=== PATIENT | male | born 1970 | race American Indian/Alaskan Native ===

== ENCOUNTER 2019-08-11 21:04 | Emergency (ER) | payer MEDICARE ==
[2019-08-11] MEDS ORDERED: CYCLOBENZAPRINE 10 MG TAB PO ONE (23:48)
[2019-08-11] MEDS ORDERED: dexAMETHasone 20 MG/5 ML VIAL IM ONE (23:48)
[2019-08-11] MEDS ORDERED: KETOROLAC 30 MG/1 ML INJ IM ONE (23:48)
--- NOTE | 2019-08-12 00:34 | XRay Report ---
EXAMINATION: Lumbar spine radiograph series, 2 views, 08/12/2019 CLINICAL INFORMATION: Back pain. No history of trauma is given COMPARISON: None. FINDINGS: There is normal alignment of the lumbar vertebral bodies. Vertebral body height and interve rtebral disc spaces are well maintained. No significant bony degenerative changes are noted. IMPRESSION: No evidence of acute bony abnormality of the lumbar spine. Signer Name: Magaly Rodriguez MD Signed: 08/12/2019 12:29 AM Workstation Name: [id number]
--- NOTE | 2019-08-12 01:38 | Emergency Department Report ---
ED Back Pain/Injury HPI - General Chief Complaint: Back Pain/Injury Stated Complaint: RIGHT SIDE AND RIGHT BACK PAIN Source: patient Limitations: No Limitations - History of Present Illness Initial Comments: Patient is a 48-year-old -[place] male with no past medical history presents to the ED with complaint of acute onset persistent severe nontraumatic low back pain that radiates to the right hip and right flank for the last 1 month, worse in the last 2 days. Patient denies fall, traumatic injury, hematuria, dysuria, testicular pain, abdominal pain, nausea, vomiting, chest pain, shortness of breath, fever, chills, headache, numbness and tingling or weakness of lower extremities bilaterally. MD Complaint: back pain, other (Right-sided back pain) -: Sudden, month(s) (1) Similar Symptoms Previously: Yes Place: home Radiation: groin, right leg (hip), flank (right) Severity: severe Severity scale (0 -10): 7 Quality: sharp Consistency: constant Improves With: none Worsens With: movement, walking Context: while lifting, turning/twisting, bending Associated Symptoms: denies other symptoms. denies: confusion, weakness, chest pain, numbness, difficulty walking, cough, difficulty urinating, diaphoresis, incontinence, constipation, headaches, abdominal pain, nausea/vomiting, seizure, syncope, other Treatments Prior to Arrival: NSAIDS - Related Data Previous Rx's Medication Instructions Recorded Last Taken Type Famotidine [Pepcid] 10 mg PO BID #30 tablet 07/17/18 Unknown Rx Nicotine [Habitrol] 21 mg TD DAILY #30 patch 07/17/18 Unknown Rx Naproxen 500 mg PO Q12H PRN #24 tablet 08/12/19 Unknown Rx methOCARBAMOL [Robaxin TAB] 750 mg PO Q8H PRN #24 tablet 08/12/19 Unknown Rx predniSONE [Deltasone] 60 mg PO QDAY #15 tab 08/12/19 Unknown Rx traMADoL [Ultram] 50 mg PO Q6HR PRN #12 tablet 08/12/19 Unknown Rx Allergies Allergy/AdvReac Type Severity Reaction Status Date / Time No Known Allergies Allergy Verified 07/13/18 08:56 ED Review of Systems ROS: Stated complaint: RIGHT SIDE AND RIGHT BACK PAIN Other details as noted in HPI Constitutional: denies: chills, fever Eyes: denies: eye pain, eye discharge, vision change ENT: denies: ear pain, throat pain Respiratory: denies: cough, shortness of breath, wheezing Cardiovascular: denies: chest pain, palpitations Endocrine: no symptoms reported Gastrointestinal: denies: abdominal pain, nausea, diarrhea Genitourinary: denies: urgency, dysuria Musculoskeletal: back pain (lower back ), arthralgia (right hip), myalgia. denies: joint swelling Skin: denies: rash, lesions Neurological: denies: headache, weakness, paresthesias Psychiatric: denies: anxiety, depression Hematological/Lymphatic: denies: easy bleeding, easy bruising ED Past Medical Hx - Past Medical History Previous Medical History?: Yes Hx Congestive Heart Failure: No Hx Diabetes: No Hx Asthma: No Hx COPD: No - Surgical History Additional Surgical History: TORN ACL - Social History Smoking Status: Current Every Day Smoker - Medications Home Medications: Home Medications Medication Instructions Recorded Confirmed Last Taken Type Famotidine [Pepcid] 10 mg PO BID #30 tablet 07/17/18 Unknown Rx Nicotine [Habitrol] 21 mg TD DAILY #30 patch 07/17/18 Unknown Rx Naproxen 500 mg PO Q12H PRN #24 tablet 08/12/19 Unknown Rx methOCARBAMOL [Robaxin TAB] 750 mg PO Q8H PRN #24 tablet 08/12/19 Unknown Rx predniSONE [Deltasone] 60 mg PO QDAY #15 tab 08/12/19 Unknown Rx traMADoL [Ultram] 50 mg PO Q6HR PRN #12 tablet 08/12/19 Unknown Rx ED Physical Exam - General Limitations: No Limitations General appearance: alert, in no apparent distress - Head Head exam: Present: atraumatic, normocephalic, normal inspection - Eye Eye exam: Present: normal appearance, PERRL, EOMI Pupils: Present: normal accommodation - ENT ENT exam: Present: normal exam, normal orophraynx, mucous membranes moist, TM's normal bilaterally, normal external ear exam - Neck Neck exam: Present: normal inspection, full ROM - Respiratory Respiratory exam: Present: normal lung sounds bilaterally. Absent: respiratory distress, wheezes, rales, rhonchi, chest wall tenderness - Cardiovascular Cardiovascular Exam: Present: regular rate, normal rhythm, normal heart sounds. Absent: systolic murmur, diastolic murmur, rubs, gallop - GI/Abdominal GI/Abdominal exam: Present: soft, normal bowel sounds. Absent: tenderness, guarding, hyperactive bowel sounds, hypoactive bowel sounds - Extremities Exam Extremities exam: Present: normal inspection, full ROM. Absent: tenderness, normal capillary refill, pedal edema, joint swelling - Back Exam Back exam: Present: normal inspection, full ROM, tenderness (palpable lumbosacral paraspinal musculoskeletal tenderness), muscle spasm, paraspinal tenderness - Neurological Exam Neurological exam: Present: alert, oriented X3, CN II-XII intact, normal gait, reflexes normal - Psychiatric Psychiatric exam: Present: normal affect, normal mood - Skin Skin exam: Present: warm, dry, intact, normal color. Absent: rash ED Course Vital Signs 08/11/19 08/12/19 08/12/19 21:14 00:18 00:48 Temperature 98.8 F Pulse Rate 68 Respiratory 18 16 16 Rate Blood Pressure 148/104 O2 Sat by Pulse 96 Oximetry ED Medical Decision Making - Radiology Data The L-spine x-ray shows no acute fractures or subluxations. - Medical Decision Making This is a 48-year-old male who presented to the ED with acute onset persistent nontraumatic low back pain that radiates to the right hip for one month. In the ED, patient is alert and oriented 3 and is not in distress. The L-spine x-ray shows no acute fractures or subluxations. Patient was treated for pain in the ED and urinalysis shows no evidence of acute urinary tract infection. On reevaluation, patient's pain is well-controlled with medications. Patient was discharged home on pain medications and advised to follow-up with his primary care physician in 7-10 days for reevaluation or return to the ED immediately if symptoms get worse. - Differential Diagnosis Muscle spasm of back; Muscle strain; Osteoarthritis Critical care attestation.: If time is entered above; I have spent that time in minutes in the direct care of this critically ill patient, excluding procedure time. ED Disposition Clinical Impression: Spasm of muscle of lower back Acute low back pain Qualifiers: Back pain laterality: right Sciatica presence: without sciatica Qualified Code(s): M54.5 - Low back pain Disposition: TO HOME OR SELFCARE Is pt being admited?: No Does the pt Need Aspirin: No Condition: Stable Instructions: Muscle Spasm (ED), Muscle Strain (ED), Acute Low Back Pain (ED) Additional Instructions: Take medication with food, drink plenty of fluids and follow-up with your primary care physician in 7-10 days for reevaluation. Return to the ED immediately if symptoms get worse. Prescriptions: predniSONE [Deltasone] 60 mg PO QDAY #15 tab Naproxen 500 mg PO Q12H PRN #24 tablet PRN Reason: Pain , Severe (7-10) methOCARBAMOL [Robaxin TAB] 750 mg PO Q8H PRN #24 tablet PRN Reason: Muscle Spasm traMADoL [Ultram] 50 mg PO Q6HR PRN #12 tablet PRN Reason: Pain Referrals: [facility] FITZPATRICK [Other] - 3-5 Days Time of Disposition: 01:38 Print Language: RWANDAN
[2019-08-12 02:02] LABS: Bacteria,Urine 1+ /HPF (Negative); Bilirubin,Urine NEG (Negative); Blood,Urine NEG (Negative); Color,Urine Yellow (Yellow); Mucus,Urine FEW /HPF; Protein,Urine <15 mg/dL mg/dL (Negative); Urobilinogen,Urine < 2.0 mg/dL (<2.0)
[2019-08-12 06:40] VITALS: BP 139/82
== END 2019-08-12 02:58 | disposition home or self-care (01) ==
LOC: ED 21:04
DX: M62.830 Muscle spasm of back (principal); F17.200 Nicotine dependence, unspecified, uncomplicated; Z79.899 Other long term (current) drug therapy
CPT/HCPCS: 72100; 81001; 96372; 99283; J1100; J1885